=== PATIENT | female | born 1965 | race Two or more races ===

== ENCOUNTER 2025-01-06 12:28 | Emergency (ER) | payer OTHER ==
[~2025-01-06] VITALS: Ht 160 cm; Wt 59.0 kg
[2025-01-06 13:00] LABS: BASOPHILS % (AUTO) 0.6 % (0.0-2.0); EOSINOPHILS % (AUTO) 0.9 % (0.0-7.0); HEMATOCRIT 35.5 % (31.2-41.9); HEMOGLOBIN 11.9 g/dL (10.9-14.3); LYMPHOCYTES # (AUTO) 1.1 K/uL (0.8-4.8); LYMPHOCYTES % (AUTO) 28.4 % (20.5-51.5); MEAN CORPUSCULAR HEMOGLOBIN 27.2 uug (24.7-32.8); MEAN CORPUSCULAR HGB CONC 34 g/dL (32.3-35.6); MEAN CORPUSCULAR VOLUME 80.9 fL (75.5-95.3); MONOCYTES # (AUTO) 0.3 K/uL (0.1-1.30); MONOCYTES % (AUTO) 7.3 % (0.0-11.0); NEUTROPHILS # (AUTO) 2.5 K/uL (1.8-8.9); NEUTROPHILS % (AUTO) 62.8 % (38.5-71.5); PLATELET COUNT (AUTO) 173 K/uL (179-408); RED BLOOD CELL COUNT(AUTO) 4.39 MIL/uL (3.63-4.92); RED CELL DISTRIBUTION WIDTH 14.1 % (12.3-17.7)
[2025-01-06] MEDS ORDERED: FAMOTIDINE. 20 MG/2 ML VIAL IV ONE (13:01)
[2025-01-06] MEDS ORDERED: LIDOCAINE VISCUS 2% 15 ML UDC ONE (13:01)
[2025-01-06] MEDS ORDERED: MAG HYDROX/AL HYDROX/SIMETH 30 ML LIQUID UDC ONE (13:01)
[2025-01-06 13:04] LABS: *BILIRUBIN,URIN NEGATIVE (NEGATIVE); *BLOOD, URINE NEGATIVE (NEGATIVE); *CLARITY,URINE CLEAR (CLEAR); *COLOR,URINE YELLOW (YELLOW); *KETONES,URINE NEGATIVE (NEGATIVE); *PROTEIN,URINE NEGATIVE (NEGATIVE); *UROBILINOGEN,URINE 0.2 E.U./dl (NORMAL); LEUKOCYTE ESTERASE ,URINE NEGATIVE (NEGATIVE); NITRITE, URINE NEGATIVE (NEGATIVE); UGLUCOSE NEGATIVE (NEGATIVE)
[2025-01-06] MEDS: FAMOTIDINE. 20 MG/2 ML VIAL IV ONE (13:06)
[2025-01-06] MEDS: IV NORMAL SALINE 1000 ML BAG IV ONE (13:06)
[2025-01-06 13:08] LABS: CALCIUM 8.7 mg/dL (8.5-10.1); CREATININE 0.5 mg/dL (0.6-1.3); POTASSIUM 3.9 mmol/L (3.5-5.1)
[2025-01-06 13:14] LABS: ALBUMIN 3.6 g/dL (3.4-5.0); BILIRUBIN,DIRECT 0.1 mg/dL (0.0-0.2); BILIRUBIN,TOTAL 0.3 mg/dL (0.2-1.0); TOTAL PROTEIN, SERUM 6.9 g/dL (6.4-8.2)
[2025-01-06 13:17] LABS: DIFFERENTIAL COMMENT 1
[2025-01-06] MEDS: MAG HYDROX/AL HYDROX/SIMETH 30 ML LIQUID UDC PO ONE (13:17)
[2025-01-06] MEDS: LIDOCAINE VISCUS 2% 15 ML UDC MM ONE (13:17)
[2025-01-06] MEDS ORDERED: ONDA4TAB5 PO (14:27)
[2025-01-06] MEDS ORDERED: FAMO-132 PO (14:27)
[2025-01-06 14:56] VITALS: BP 127/61; O2SAT 99
== END 2025-01-06 14:56 | disposition home or self-care (01) ==
LOC: ER 12:28
DX: R10.13 Epigastric pain (principal); M54.50 Low back pain, unspecified; E78.5 Hyperlipidemia, unspecified; I10 Essential (primary) hypertension; Z88.0 Allergy status to penicillin
CPT/HCPCS: 99284; 96374; 76705; 96361; 80076; 80048; 81003; 83690; 85025; 36415; J1308; J7040; A4606; A4663